=== PATIENT | female | born 1970 | race African-American/Black ===

== ENCOUNTER 2020-11-05 13:36 | Emergency (ER) | payer SELFPAY ==
[~2020-11-05] VITALS: Ht 152.4 cm; Wt 89.0 kg
[2020-11-05] MEDS ORDERED: METOCLOPRAMIDE HCL 10MG TABLET PO ONE (14:00)
[2020-11-05] MEDS ORDERED: IBUPROFEN 600MG TABLET PO ONE (14:00)
[2020-11-05 14:05] VITALS: BP 132/84
[2020-11-05] MEDS ORDERED: METO-293 PO (14:39)
[2020-11-05] MEDS ORDERED: IBUP-2028 MT (14:39)
== END 2020-11-05 14:57 | disposition home or self-care (01) ==
LOC: ER 13:36
DX: R51.9 Headache, unspecified (principal)
CPT/HCPCS: 99283; J8597